=== PATIENT | female | born 1950 | race Two or more races ===

== ENCOUNTER 2024-11-28 22:00 | Emergency (ER) | payer OTHER ==
[~2024-11-28] VITALS: Ht 154.9 cm; Wt 63.5 kg
[2024-11-28] MEDS ORDERED: FARXIGA10 MG PO (22:24)
[2024-11-28] MEDS ORDERED: LANTUS SOL100 UNIT/1 SQ (22:25)
[2024-11-28] MEDS ORDERED: TAPAZOLE5 MG PO (22:25)
[2024-11-28] MEDS ORDERED: ARIPIPRAZOLE2 MG PO (22:25)
[2024-11-28] MEDS ORDERED: BENZTROPINE MESY1 MG PO (22:26)
[2024-11-28] MEDS ORDERED: BUSPIRONE HCL15 MG PO (22:26)
[2024-11-28] MEDS ORDERED: GABAPENTIN800 M1 PO (22:26)
[2024-11-28] MEDS ORDERED: DULOXETINE HCL30 MG PO (22:27)
[2024-11-28] MEDS ORDERED: DEPAKOTE ER250 MG PO (22:28)
[2024-11-28] MEDS ORDERED: NOVOLOG FL100 UNIT/1 SQ (22:28)
[2024-11-28] MEDS ORDERED: ALPRAZOLAM2 MG PO (22:28)
[2024-11-28] MEDS ORDERED: DULOXETINE HCL60 MG PO (22:28)
[2024-11-28] MEDS ORDERED: DICLOFENAC POTA50 MG PO (22:28)
[2024-11-28] MEDS ORDERED: OMEPRAZOLE40 MG PO (22:29)
[2024-11-28] MEDS ORDERED: ATORVASTATIN CA20 MG PO (22:29)
[2024-11-28] MEDS ORDERED: FOLIC ACID1 MG PO (22:29)
[2024-11-28] MEDS ORDERED: FERROUS SULFAT325 MG PO (22:29)
[2024-11-28 22:31] VITALS: BP 115/72; O2SAT 97
[2024-11-29 00:41] LABS: ALBUMIN 3.8 gm/dL (3.4-5.0); BILIRUBIN TOTAL 0.63 mg/dL (0.3-1.2); CALCIUM 9.1 mg/dL (8.5-10.1); CREATININE SERUM 0.89 mg/dL (0.55-1.02); GFR 61.83; GLOBULINA 4.1 G/DL (2.4-3.5); POTASSIUM 4.28 mEq/L (3.5-5.1); TOTAL PROTEIN 7.9 gm/dL (6.4-8.2)
[2024-11-29 02:19] LABS: BASO % 0.3 % (0.1-1.2); EOS # 0.28 (0.04-0.54); EOS % 4.2 % (0.7-7.0); HEMATOCRIT 31.7 % (34.1-44.9); LYMPH # 1.03 (1.18-3.74); LYMPH % 15.3 % (19.3-53.1); MEAN CORPUSCULAR HEMOGLOBIN 26.8 pg (25.6-32.2); MONO # 0.51 (0.24-0.82); MONO % 7.6 % (4.7-12.5); NEUT # 4.87 (1.56-6.13); NEUT % 72.5 % (34.0-71.1); RED CELL DISTRIBUTION WIDTH 15.9 % (11.6-14.4)
[2024-11-29 02:31] LABS: HEMOGLOBIN 10.2 g/dL (11.2-15.7)
[2024-11-29 02:32] LABS: PLATELET COUNT 196 K/uL (163-369)
== END 2024-11-29 03:13 | disposition home or self-care (01) ==
LOC: ER 22:00
PROVIDERS: General Practice
DX: S00.03XA Contusion of scalp, initial encounter (principal); W18.39XA Other fall on same level, initial encounter; Y93.89 Activity, other specified; Y92.018 Other place in single-family (private) house as the place of occurrence of the external cause; E11.9 Type 2 diabetes mellitus without complications; Z79.4 Long term (current) use of insulin; S70.01XA Contusion of right hip, initial encounter